=== PATIENT | female | born 1985 | race Caucasian/White ===

== ENCOUNTER 2016-10-25 20:03 | Emergency (ER) | payer MEDICAID ==
[2016-10-25] MEDS ORDERED: HYDROmorphONE/DILAUDID 1 MG/ML SYR IVP ONE ×2 (20:29→22:00)
[2016-10-25] MEDS ORDERED: NS 1,000 ML IV ONE (20:29)
[2016-10-25] MEDS ORDERED: ONDANSETRON 4 MG/2 ML VIAL IVP ONE (20:29)
[2016-10-25 20:50] VITALS: RESP 16
[2016-10-25 20:51] VITALS: TEMP 97.7
[2016-10-25 20:59] LABS: % IMMATURE GRANULYOCYTES 0.3 % (0.0-1.1); ABSOLUTE IMMATURE GRANULOCYTES 0.02 10^3/uL (0.00-0.10); ADD DIFF? NO; ADD MORPH? NO; ADD SCAN? NO; ATYPICAL LYMPHOCYTE FLAG 10 (0-99); COLOR YELLOW; FRAGMENT RBC FLAG 0 (0-99); HEMATOCRIT 45.1 % (38.0-47.0); HEMOGLOBIN 15.7 g/dL (12.6-16.3); LEFT SHIFT FLG 0 (0-99); LEUKOCYTE ESTERASE,URINE NEGATIVE (NEGATIVE); LIPEMIA HEMOLYSIS FLAG 90 (0-99); MEAN CELL HEMOGLOBIN CONCENTR. 34.8 g/dL (32.4-36.7); MEAN PLATELET VOLUME 8.7 fL (8.7-11.7); NITRITE,URINE NEGATIVE (NEGATIVE); PLATELET CLUMPS FLAG 20 (0-99); PLATELET COUNT 271 10^3/uL (150-400); RED BLOOD CELL COUNT 5.07 10^6/uL (4.18-5.33); RED CELL DISTRIBUTION WIDTH 12.8 % (11.5-15.2)
[2016-10-25 21:06] LABS: ALANINE AMINOTRANSFERASE 34 IU/L (9-52); ALBUMIN 4.4 g/dL (3.5-5.0); ALKALINE PHOSPHATASE 70 IU/L (38-126); ANION GAP 10 mEq/L (8-16); ASPARTATE AMINOTRANSFERASE 27 IU/L (14-46); BILIRUBIN,TOTAL 0.7 mg/dL (0.1-1.4); BILIRUBIN-CONJUGATED 0.4 mg/dL (0.0-0.5); BILIRUBIN-UNCONJUGATED 0.3 mg/dL (0.0-1.1); CALCIUM 9.5 mg/dL (8.5-10.4); CARBON DIOXIDE 24 mEq/l (22-31); CHLORIDE 103 mEq/L (97-110); CREATININE 0.7 mg/dL (0.6-1.0); GLOMERULAR FILTRATION RATE > 60; GLUCOSE 91 mg/dL (70-100); SODIUM 137 mEq/L (134-144); TOTAL PROTEIN 7.1 g/dL (6.3-8.2)
[2016-10-25 22:08] VITALS: BP 127/85
[2016-10-25] MEDS ORDERED: IOPAMIDOL (ISOVUE-300) 100 ML BTL IV ONE (22:09)
--- NOTE | 2016-10-25 23:11 | EDPHY ---
H & P Stated Complaint: ABD PAIN FOR PAST 2 WEEKS. NAUSE AND VOMITING OFF AND ON WITH PAIN - Personal History LMP (Females 10-55): 8-14 Days Ago Current Tetanus/Diphtheria Vaccine: Yes Current Tetanus Diphtheria and Acellular Pertussis (TDAP): Yes - Medical/Surgical History Hx Asthma: No Hx Chronic Respiratory Disease: No Hx Diabetes: No Hx Cardiac Disease: No Hx Renal Disease: No Hx Cirrhosis: No Hx Alcoholism: No Hx HIV/AIDS: No Hx Splenectomy or Spleen Trauma: No Other PMH: medical Back problems, fibromyalgia, depression. surgery none - Social History Smoking Status: Current every day smoker Time Seen by Provider: 10/25/16 20:19 HPI/ROS: Chief complaint: Abdominal pain History of present illness: This is a 30-year-old female who presents to the emergency department for evaluation of abdominal pain. Patient reports the onset of symptoms over the last 2 weeks. She reports the symptoms are intermittent. She describes a cramping pain. She has had associated nausea as well as vomiting. She denies specific precipitating factors. She denies alleviating factors. She denies other associated signs or symptoms including no fevers, no diarrhea or constipation, no urinary symptoms, no abnormal vaginal discomfort or discharge. No sick contacts. Review of systems: A 10 point review of systems was obtained and other than described above was negative (Phong Waller) - Physical Exam Exam: General Appearance: Alert, nontoxic. Eyes: Pupils equal and round no pallor or injection. ENT, Mouth: Mucous membranes moist. Respiratory: There are no retractions, lungs are clear to auscultation. Cardiovascular: Regular rate and rhythm. Gastrointestinal: Bowel sounds are normal. Abdomen is soft and nondistended. Mild tenderness in the lower quadrants bilaterally. No peritoneal signs. Neurological: Alert and oriented. Strength and sensation intact and symmetrical. Skin: Warm and dry, no rashes. Musculoskeletal: Neck is supple non tender. Extremities are symmetrical, full range of motion. Psychiatric: Patient is oriented X 3, there is no agitation. (Phong Waller) Constitutional: Initial Vital Signs Temperature (C) 36.7 C 10/25/16 20:10 Heart Rate 105 H 10/25/16 20:10 Respiratory Rate 18 10/25/16 20:10 Blood Pressure 143/98 H 10/25/16 20:10 O2 Sat (%) 94 10/25/16 20:10 O2 Delivery Mode Room Air Allergies/Adverse Reactions: No Known Allergies Allergy (Verified 10/25/16 20:22) Home Medications: Medication Instructions Recorded Sertraline HCl 07/05/16 Medical Decision Making - Diagnostics Imaging: Pelvic ultrasound unremarkable CT scan of the abdomen and pelvis with IV contrast unremarkable (Phong Waller) ED Course/Re-evaluation: Patient is seen under the supervision of my secondary supervising physician Dr. Nancy Alvarez. Patient presents to the emergency department for evaluation of 2 week history of abdominal pain with nausea and vomiting. Presentation she is nontoxic. She is afebrile and vital signs are stable. Serial abdominal exams were performed in the emergency room both on arrival during her stay and just prior to discharge. Her abdomen remained benign. Blood studies, urinalysis, pelvic ultrasound unremarkable. Discussed with patient that I had not found significant findings on initial evaluation she did want to pursue a CT scan after discussing the risks and benefits. This was pursued and unremarkable. Patient is symptomatically treated and felt well. She was comfortable being discharged home. Home care is discussed. She is asked to follow up with primary care doctor and Gastroenterology for continued evaluation and care. Strict return precautions were given. Patient voiced understanding and agreement with plan. (Phong Waller) Differential Diagnosis: Included but not limited to gastritis, gastroenteritis, biliary tract disease, pancreatitis, colitis, appendicitis, an associated complications, ovarian cyst, urinary tract disease (Phong Waller) Other Provider: The patient was evaluated and managed by the physician assistant professor. I have reviewed this chart and I agree with the findings and plan of care as documented , as indicated by my signature. I am the secondary supervising physician. ( Nancy Alvarez) - Data Points Laboratory Results: Laboratory Results 10/25/16 20:45 10/25/16 20:45 10/25/16 10/25/16 10/25/16 20:45 20:45 20:45 WBC RBC Hgb Hct MCV MCH MCHC RDW Plt Count MPV Neut % (Auto) Lymph % (Auto) [place] % (Auto) Eos % (Auto) Baso % (Auto) Nucleat RBC Rel Count Absolute Neuts (auto) Absolute Lymphs (auto) Absolute Monos (auto) Absolute Eos (auto) Absolute Basos (auto) Absolute Nucleated RBC Immature Gran % Immature Gran # Sodium 137 mEq/L mEq/L (134-144) Potassium 4.0 mEq/L mEq/L (3.5-5.2) Chloride 103 mEq/L mEq/L (97-110) Carbon Dioxide 24 mEq/l mEq/l (22-31) Anion Gap 10 mEq/L mEq/L (8-16) BUN 8 mg/dL mg/dL (7-23) Creatinine 0.7 mg/dL mg/dL (0.6-1.0) Estimated GFR > 60 Glucose 91 mg/dL mg/dL (70-100) Calcium 9.5 mg/dL mg/dL (8.5-10.4) Total Bilirubin 0.7 mg/dL mg/dL (0.1-1.4) Conjugated Bilirubin 0.4 mg/dL mg/dL (0.0-0.5) Unconjugated Bilirubin 0.3 mg/dL mg/dL (0.0-1.1) AST 27 IU/L IU/L (14-46) ALT 34 IU/L IU/L (9-52) Alkaline Phosphatase 70 IU/L IU/L (38-126) Total Protein 7.1 g/dL g/dL (6.3-8.2) Albumin 4.4 g/dL g/dL (3.5-5.0) Lipase 25.0 IU/L IU/L (23-300) Beta HCG, Qual NEGATIVE Urine Color YELLOW Urine Appearance CLEAR Urine pH 5.0 (5.0-7.5) Ur Specific [place] 1.009 (1.002-1.030) Urine Protein NEGATIVE (NEGATIVE) Urine Ketones NEGATIVE (NEGATIVE) Urine Blood 2+ H (NEGATIVE) Urine Nitrate NEGATIVE (NEGATIVE) Urine Bilirubin NEGATIVE (NEGATIVE) Urine Urobilinogen NEGATIVE EU EU (0.2-1.0) Ur Leukocyte Esterase NEGATIVE (NEGATIVE) Urine RBC 1-3 /hpf /hpf (0-3) Urine WBC 1-3 /hpf /hpf (0-3) Ur Epithelial Cells TRACE /lpf /lpf (NONE-1+) Ur Culture Indicated? NOT INDICATED (NI) Urine Glucose NEGATIVE (NEGATIVE) 10/25/16 20:45 WBC 7.20 10^3/uL 10^3/uL (3.80-9.50) RBC 5.07 10^6/uL 10^6/uL (4.18-5.33) Hgb 15.7 g/dL g/dL (12.6-16.3) Hct 45.1 % % (38.0-47.0) MCV 89.0 fL fL (81.5-99.8) MCH 31.0 pg pg (27.9-34.1) MCHC 34.8 g/dL g/dL (32.4-36.7) RDW 12.8 % % (11.5-15.2) Plt Count 271 10^3/uL 10^3/uL (150-400) MPV 8.7 fL fL (8.7-11.7) Neut % (Auto) 57.2 % % (39.3-74.2) Lymph % (Auto) 34.4 % % (15.0-45.0) [place] % (Auto) 6.8 % % (4.5-13.0) Eos % (Auto) 0.7 % % (0.6-7.6) Baso % (Auto) 0.6 % % (0.3-1.7) Nucleat RBC Rel Count 0.0 % % (0.0-0.2) Absolute Neuts (auto) 4.12 10^3/uL 10^3/uL (1.70-6.50) Absolute Lymphs (auto) 2.48 10^3/uL 10^3/uL (1.00-3.00) Absolute Monos (auto) 0.49 10^3/uL 10^3/uL (0.30-0.80) Absolute Eos (auto) 0.05 10^3/uL 10^3/uL (0.03-0.40) Absolute Basos (auto) 0.04 10^3/uL 10^3/uL (0.02-0.10) Absolute Nucleated RBC 0.00 10^3/uL 10^3/uL (0-0.01) Immature Gran % 0.3 % % (0.0-1.1) Immature Gran # 0.02 10^3/uL 10^3/uL (0.00-0.10) Sodium Potassium Chloride Carbon Dioxide Anion Gap BUN Creatinine Estimated GFR Glucose Calcium Total Bilirubin Conjugated Bilirubin Unconjugated Bilirubin AST ALT Alkaline Phosphatase Total Protein Albumin Lipase Beta HCG, Qual Urine Color Urine Appearance Urine pH Ur Specific [place] Urine Protein Urine Ketones Urine Blood Urine Nitrate Urine Bilirubin Urine Urobilinogen Ur Leukocyte Esterase Urine RBC Urine WBC Ur Epithelial Cells Ur Culture Indicated? Urine Glucose Medications Given: Discontinued Medications Hydrocodone Bitart/Acetaminophen (Topton 5/325mg Prepack#6) 1 btl TAKEHOME EDNOW ONE Stop: 10/25/16 23:38 Last Admin: 10/25/16 23:43 Dose: 1 btl Hydromorphone HCl (Dilaudid) 1 mg IVP EDNOW ONE Stop: 10/25/16 20:30 Last Admin: 10/25/16 20:48 Dose: 1 mg Hydromorphone HCl (Dilaudid) 1 mg IVP EDNOW ONE Stop: 10/25/16 22:01 Last Admin: 10/25/16 22:06 Dose: 1 mg Sodium Chloride (Ns) 1,000 mls @ 0 mls/hr IV ONCE ONE PRN Reason: Wide Open Stop: 10/25/16 20:30 Last Admin: 10/25/16 20:39 Dose: 1,000 mls Ondansetron HCl (Zofran) 4 mg IVP EDNOW ONE Stop: 10/25/16 20:30 Last Admin: 10/25/16 20:48 Dose: 4 mg Ondansetron HCl (Zofran Odt 4 Mg Prepack#2) 1 btl TAKEHOME EDNOW ONE Stop: 10/25/16 23:38 Last Admin: 10/25/16 23:43 Dose: 1 btl Departure - Departure Disposition: Home, Routine, Self-Care Clinical Impression: Abdominal pain Qualifiers: Abdominal location: generalized Qualified Code(s): R10.84 - Generalized abdominal pain Condition: Good Instructions: Hydrocodone/Acetaminophen (By mouth), Ondansetron (By mouth), Abdominal Pain (ED) Additional Instructions: Follow-up with your primary care doctor or a envelope folding machine operator for continued evaluation and care You have been prescribed [Topton] for pain. [Topton] contains Tylenol, do not take extra Tylenol/acetaminophen/Apap with it. It is sedating. If symptoms worsen or new symptoms develop return to the emergency department for recheck Referrals: Dequan Rivas MD [Primary Care Provider] - As per Instructions Zay Malik MD, FACG [Medical Doctor] - As per Instructions
[2016-10-25] MEDS ORDERED: HYDROCOD/APAP 5/325 PREPACK#6 BTL TAKEHOME ONE (23:37)
[2016-10-25] MEDS ORDERED: ONDANSETRON 4MG PREPACK#2 BTL TAKEHOME ONE (23:37)
[2016-10-25 23:46] VITALS: PULSE 82; O2SAT 94
== END 2016-10-25 23:45 | disposition home or self-care (01) ==
DX: R10.84 Generalized abdominal pain (principal); F17.200 Nicotine dependence, unspecified, uncomplicated
CPT/HCPCS: 96374; J1170; J2405; Q9967

== ENCOUNTER 2016-10-27 11:43 | Emergency (ER) | payer MEDICAID ==
[2016-10-27] MEDS ORDERED: NS 1,000 ML IV ONE (13:48)
[2016-10-27] MEDS ORDERED: MAALOX/LIDO/HYOSC GI COCKTAIL 55 ML BOTTLE PO ONE (13:48)
[2016-10-27] MEDS ORDERED: KETOROLAC 30 MG/1 ML SDV IVP ONE (13:48)
[2016-10-27] MEDS ORDERED: ONDANSETRON 4 MG/2 ML VIAL IVP ONE (13:48)
--- NOTE | 2016-10-27 13:50 | EDPHY ---
H & P Stated Complaint: Abdo pain- seen 3/, now worse epigastric area. Time Seen by Provider: 10/27/16 13:21 HPI/ROS: CHIEF COMPLAINT: Right upper quadrant abdominal pain HISTORY OF PRESENT ILLNESS: 30-year-old female seen emergency department 2 days ago at which time she is complaining of lower abdominal pain, had pelvic ultrasonography, CT scanning of the abdomen all which was negative. Returns to the ER complaining of new right upper quadrant and epigastric discomfort since last evening, was awake all last night complaining of pain with associated vomiting and nausea. No radiation of pain. Atraumatic. No dyspnea. No recent URI symptoms. No cough. No back or flank pain. No urinary abnormality. She has previously been given GI referral information and is planning on arranging a GI appointment REVIEW OF SYSTEMS: A ten point review of systems was performed and is negative with the exception of the items mentioned in the HPI PAST MEDICAL & SURGICAL HISTORY: No pertinent medical or surgical history SOCIAL HISTORY: Nonsmoker PHYSICAL EXAM (Prior to examination, patient consented to physical exam, hands were washed and my usual and customary physical exam procedures followed) 1) GENERAL: Well-developed, well-nourished, alert and oriented. Appears uncomfortable . 2) HEAD: Normocephalic, atraumatic 3) HEENT: Pupils equal, round, reactive to light bilaterally. Sclera anicteric. Nasopharynx, oropharynx, clear, no lesions. 4) NECK: Full range of motion, no meningeal signs. 5) LUNGS: Clear auscultation bilaterally, no wheezes, no rhonchi, no retractions. 6) HEART: Regular rate and rhythm, no murmur, no heave, no gallop. 7) ABDOMEN: No guarding, tender to palpation right upper quadrant and epigastrium, negative McBurney's, negative Rovsing's, negative peritoneal sign, 8) MUSCULOSKELETAL: Moving all extremities, no focal areas of tenderness, no obvious trauma. No peripheral edema or discoloration. 9) BACK: No CVA tenderness, no midline vertebral tenderness, no fluctuance, no step-off, no obvious trauma, no visual or palpable abnormality. 10) SKIN: No rash, no petechiae. 11) Psychiatric: Patient is oriented X 3, there is no agitation. DIFFERENTIAL DIAGNOSIS: [In no particular order, including but not limited to biliary colic, cholecystitis, peptic ulcer disease, pancreatitis, and gastroenteritis. This is a partial list of diagnoses considered. These considerations are based on history, physical exam, past history and reassessment. - Personal History Current Tetanus/Diphtheria Vaccine: Unsure Current Tetanus Diphtheria and Acellular Pertussis (TDAP): Unsure - Medical/Surgical History Hx Asthma: No Hx Chronic Respiratory Disease: No Hx Diabetes: No Hx Cardiac Disease: No Hx Renal Disease: No Hx Cirrhosis: No Hx Alcoholism: No Hx HIV/AIDS: No Hx Splenectomy or Spleen Trauma: No Other PMH: sciatica, scoliosis, fibromyalgia, depression - Social History Smoking Status: Heavy smoker Constitutional: Initial Vital Signs Temperature (C) 36.9 C 10/27/16 12:41 Heart Rate 100 10/27/16 12:41 Respiratory Rate 16 10/27/16 12:41 Blood Pressure 119/85 H 10/27/16 12:41 O2 Sat (%) 93 10/27/16 12:41 O2 Delivery Mode Room Air Allergies/Adverse Reactions: marijuana Allergy (Intermediate, Verified 10/27/16 12:45) Vomiting Home Medications: Medication Instructions Recorded Sertraline HCl 07/05/16 Amitriptyline HCl 10/27/16 Flonase Nasal [place] 10/27/16 Pantoprazole Sodium [Protonix 40mg 40 mg PO DAILY #30 tab 10/27/16 (RX)] Ranitidine HCl 10/27/16 Tizanidine HCl 10/27/16 Medical Decision Making - Diagnostics Imaging: Sonography Limited to the Right Upper Quadrant of the Abdomen CLINICAL HISTORY: 30-year-old female presenting to the ED complaining of right upper quadrant pain since last night. Rule out cholelithiasis. TECHNIQUE: A curvilinear 5 MHz transducer was used to sonographically evaluate the right upper quadrant of the abdomen. Color Doppler was used. COMPARISON STUDY: CT scan of the abdomen, dated 10/25/2016. FINDINGS: The pancreatic contour is normal. The abdominal aorta is normal in size, and tapers normally. The visualized IVC is normal in caliber. The hepatic vein trifurcation is normal. The main portal vein is patent. The liver is normal in size, measuring 16.3 cm along the right midaxillary line. There is no intra or extrahepatic bile duct dilatation. The common bile duct measures 4.7 mm. The gallbladder is moderately distended, and there is no evidence of cholelithiasis, pericholecystic fluid, or sonographic Goodrich sign. There are some adherent nonmobile echogenic polyps in the 2 to 3 mm range (versus small "sludge balls") . The lack of mobility with no acoustic shadowing would militate against cholelithiasis. The right kidney is normal in size, shape, and contour, with a normal renal cortical thickness, and no focal renal mass or hydronephrosis, and measures 10.2 x 5.0 x 4.9 cm, and the right renal cortex measures 1.3 cm.. There is no ascites or right pleural effusion. IMPRESSION: There are small gallbladder polyps (versus adherent sludge balls) in the 2 to 3 mm range , with no convincing evidence of cholelithiasis, cholecystitis, or bile duct dilatation. Findings and recommendations were discussed with Maria Luisa Blake PA-C, at 15: 12, on 10/27/2016. Dictated By: Lalo Salinas MD Images reviewed by myself ED Course/Re-evaluation: 1:45 p.m.: Old medical records and imaging studies reviewed by myself.. Discussed case with Dr Parker Eastman in the ER. 4:00 p.m.: Re-evaluation, she is currently asymptomatic. She is texting on her cell phone, appears comfortable. The ER senior case manager has arranged for an appointment tomorrow with [facility] the [facility] that his [place] office at 1:45 p.m.. Stressed repeatedly to the patient that she needs to keep this appointment. Started on proton pump inhibitor. Doubt acute surgical abdominal pathology. - Data Points Laboratory Results: Laboratory Results 10/27/16 13:37 10/27/16 13:37 10/27/16 10/27/16 13:37 13:37 WBC 5.62 10^3/uL 10^3/uL (3.80-9.50) RBC 4.91 10^6/uL 10^6/uL (4.18-5.33) Hgb 15.5 g/dL g/dL (12.6-16.3) Hct 45.0 % % (38.0-47.0) MCV 91.6 fL fL (81.5-99.8) MCH 31.6 pg pg (27.9-34.1) MCHC 34.4 g/dL g/dL (32.4-36.7) RDW 13.0 % % (11.5-15.2) Plt Count 246 10^3/uL 10^3/uL (150-400) MPV 9.0 fL fL (8.7-11.7) Neut % (Auto) 62.6 % % (39.3-74.2) Lymph % (Auto) 27.9 % % (15.0-45.0) [place] % (Auto) 6.8 % % (4.5-13.0) Eos % (Auto) 1.4 % % (0.6-7.6) Baso % (Auto) 1.1 % % (0.3-1.7) Nucleat RBC Rel Count 0.0 % % (0.0-0.2) Absolute Neuts (auto) 3.52 10^3/uL 10^3/uL (1.70-6.50) Absolute Lymphs (auto) 1.57 10^3/uL 10^3/uL (1.00-3.00) Absolute Monos (auto) 0.38 10^3/uL 10^3/uL (0.30-0.80) Absolute Eos (auto) 0.08 10^3/uL 10^3/uL (0.03-0.40) Absolute Basos (auto) 0.06 10^3/uL 10^3/uL (0.02-0.10) Absolute Nucleated RBC 0.00 10^3/uL 10^3/uL (0-0.01) Immature Gran % 0.2 % % (0.0-1.1) Immature Gran # 0.01 10^3/uL 10^3/uL (0.00-0.10) Sodium 141 mEq/L mEq/L (134-144) Potassium 4.3 mEq/L mEq/L (3.5-5.2) Chloride 108 mEq/L mEq/L (97-110) Carbon Dioxide 23 mEq/l mEq/l (22-31) Anion Gap 10 mEq/L mEq/L (8-16) BUN 6 mg/dL L mg/dL (7-23) Creatinine 0.7 mg/dL mg/dL (0.6-1.0) Estimated GFR > 60 Glucose 93 mg/dL mg/dL (70-100) Calcium 9.3 mg/dL mg/dL (8.5-10.4) Total Bilirubin 0.7 mg/dL mg/dL (0.1-1.4) Conjugated Bilirubin 0.4 mg/dL mg/dL (0.0-0.5) Unconjugated Bilirubin 0.3 mg/dL mg/dL (0.0-1.1) AST 24 IU/L IU/L (14-46) ALT 35 IU/L IU/L (9-52) Alkaline Phosphatase 76 IU/L IU/L (38-126) Total Protein 6.8 g/dL g/dL (6.3-8.2) Albumin 4.4 g/dL g/dL (3.5-5.0) Lipase 33.0 IU/L IU/L (23-300) Medications Given: Discontinued Medications Hydromorphone HCl (Dilaudid) 1 mg IVP EDNOW ONE Stop: 10/27/16 14:23 Last Admin: 10/27/16 14:40 Dose: 1 mg Hydromorphone HCl (Dilaudid) 1 mg IVP EDNOW ONE Stop: 10/27/16 15:36 Last Admin: 10/27/16 15:45 Dose: 1 mg Sodium Chloride (Ns) 1,000 mls @ 0 mls/hr IV ONCE ONE PRN Reason: Wide Open Stop: 10/27/16 13:49 Last Admin: 10/27/16 13:50 Dose: 1,000 mls Ketorolac Tromethamine (Toradol) 30 mg IVP EDNOW ONE Stop: 10/27/16 13:49 Last Admin: 10/27/16 13:55 Dose: 30 mg Miscellaneous Medication (Gi Cocktail) 45 ml PO EDNOW ONE Stop: 10/27/16 13:49 Last Admin: 10/27/16 13:55 Dose: 45 ml Ondansetron HCl (Zofran) 4 mg IVP EDNOW ONE Stop: 10/27/16 13:49 Last Admin: 10/27/16 13:55 Dose: 4 mg Departure - Departure Disposition: Home, Routine, Self-Care Clinical Impression: Abdominal pain Qualifiers: Abdominal location: right upper quadrant Qualified Code(s): R10.11 - Right upper quadrant pain Nausea & vomiting Qualifiers: Vomiting type: unspecified Vomiting Intractability: non-intractable Qualified Code(s): R11.2 - Nausea with vomiting, unspecified Condition: Good Instructions: Acute Nausea and Vomiting (ED), Abdominal Pain (ED) Additional Instructions: Darin We have made you an appoinment at [facility] in [place] for October 28 at 145PM. The address is [facility] [address]. They are located at the corner [address] It is extremely DIFFICULT to get an appointment with their clinic so we do ask that you please make every effort to be there on time so they can continue to evaluate your ongoing abdominal pain. Seek immediate medical attention if you develop new or worsening symptoms, if you develop fevers, chills, inability to tolerate oral intake or any other symptoms that concerns you. Referrals: Jorg eA Reeder MD [Medical Doctor] - 10/28/16 1:45 pm (You have an appointment with Dr Reeder at [facility] IN [place] office tomorrow.) Prescriptions: Pantoprazole Sodium [Protonix 40mg (RX)] 40 mg PO DAILY #30 tab
[2016-10-27 13:54] LABS: % IMMATURE GRANULYOCYTES 0.2 % (0.0-1.1); ABSOLUTE IMMATURE GRANULOCYTES 0.01 10^3/uL (0.00-0.10); ADD DIFF? NO; ADD MORPH? NO; ADD SCAN? NO; ATYPICAL LYMPHOCYTE FLAG 20 (0-99); FRAGMENT RBC FLAG 0 (0-99); HEMOGLOBIN 15.5 g/dL (12.6-16.3); LEFT SHIFT FLG 0 (0-99); LIPEMIA HEMOLYSIS FLAG 90 (0-99); MEAN CELL HEMOGLOBIN 31.6 pg (27.9-34.1); MEAN CELL HEMOGLOBIN CONCENTR. 34.4 g/dL (32.4-36.7); MEAN CELL VOLUME 91.6 fL (81.5-99.8); PLATELET CLUMPS FLAG 0 (0-99); PLATELET COUNT 246 10^3/uL (150-400); RED BLOOD CELL COUNT 4.91 10^6/uL (4.18-5.33)
[2016-10-27 14:06] LABS: ALANINE AMINOTRANSFERASE 35 IU/L (9-52); ALBUMIN 4.4 g/dL (3.5-5.0); ALKALINE PHOSPHATASE 76 IU/L (38-126); ANION GAP 10 mEq/L (8-16); ASPARTATE AMINOTRANSFERASE 24 IU/L (14-46); BILIRUBIN,TOTAL 0.7 mg/dL (0.1-1.4); BILIRUBIN-CONJUGATED 0.4 mg/dL (0.0-0.5); BILIRUBIN-UNCONJUGATED 0.3 mg/dL (0.0-1.1); CALCIUM 9.3 mg/dL (8.5-10.4); CARBON DIOXIDE 23 mEq/l (22-31); CHLORIDE 108 mEq/L (97-110); CREATININE 0.7 mg/dL (0.6-1.0); GLOMERULAR FILTRATION RATE > 60; GLUCOSE 93 mg/dL (70-100); POTASSIUM 4.3 mEq/L (3.5-5.2); SODIUM 141 mEq/L (134-144); TOTAL PROTEIN 6.8 g/dL (6.3-8.2)
[2016-10-27] MEDS ORDERED: HYDROmorphONE/DILAUDID 1 MG/ML SYR IVP ONE ×2 (14:22→15:35)
[2016-10-27 16:21] VITALS: BP 128/79; PULSE 89; RESP 17; TEMP 98.4; O2SAT 98
== END 2016-10-27 16:20 | disposition home or self-care (01) ==
DX: R10.11 Right upper quadrant pain (principal); R11.2 Nausea with vomiting, unspecified; F17.200 Nicotine dependence, unspecified, uncomplicated
CPT/HCPCS: 96374; J1170; J1885; J2405

== ENCOUNTER 2017-01-01 18:46 | Emergency (ER) | payer MEDICAID ==
[2017-01-01 19:08] VITALS: BP 111/84; PULSE 109; RESP 20; TEMP 98.2; O2SAT 98
[2017-01-01 19:54] LABS: COLOR YELLOW; LEUKOCYTE ESTERASE,URINE 3+ (NEGATIVE); NITRITE,URINE POSITIVE (NEGATIVE)
[2017-01-01 20:06] LABS: BACTERIA 4+ /hpf (NONE SEEN); MUCUS TRACE /lpf (NONE-1+); WBC,URINE 50-182 /hpf (0-3)
--- NOTE | 2017-01-01 20:21 | EDPHY ---
H & P Time Seen by Provider: 01/01/17 20:14 HPI/ROS: Emergency Department course/MDM: I went into the room at 8:15 p.m. to see the patient but she had left. Nurse attempted to contact her by phone. Encouraged her to return Smoking Status: Heavy smoker Constitutional: Initial Vital Signs Temperature (C) 36.8 C 01/01/17 19:05 Heart Rate 109 H 01/01/17 19:05 Respiratory Rate 20 01/01/17 19:05 Blood Pressure 111/84 H 01/01/17 19:05 O2 Sat (%) 98 01/01/17 19:05 O2 Delivery Mode Room Air Allergies/Adverse Reactions: marijuana Allergy (Intermediate, Verified 01/01/17 19:05) Vomiting Home Medications: Medication Instructions Recorded Sertraline HCl 07/05/16 Amitriptyline HCl 10/27/16 Tizanidine HCl 10/27/16 MDM/Departure - Depart Disposition: Left Without Being Seen Referrals: Sherrill Miller DO [Primary Care Provider] - As per Instructions
== END 2017-01-01 20:34 | disposition left against medical advice (07) ==
DX: Z53.21 Procedure and treatment not carried out due to patient leaving prior to being seen by health care provider (principal)

== ENCOUNTER 2017-01-01 22:27 | Emergency (ER) | payer MEDICAID ==
[2017-01-01 22:32] VITALS: RESP 16; TEMP 98.4; O2SAT 94
[2017-01-01] MEDS ORDERED: ONDANSETRON 4 MG/2 ML VIAL IVP ONE (22:51)
[2017-01-01] MEDS ORDERED: NS 1,000 ML IV ONE (22:51)
[2017-01-01 23:07] LABS: % IMMATURE GRANULYOCYTES 0.2 % (0.0-1.1); ABSOLUTE IMMATURE GRANULOCYTES 0.02 10^3/uL (0.00-0.10); ADD DIFF? NO; ADD MORPH? NO; ADD SCAN? NO; ATYPICAL LYMPHOCYTE FLAG 30 (0-99); FRAGMENT RBC FLAG 0 (0-99); HEMOGLOBIN 15.4 g/dL (12.6-16.3); LEFT SHIFT FLG 0 (0-99); LIPEMIA HEMOLYSIS FLAG 90 (0-99); MEAN CELL HEMOGLOBIN 31.4 pg (27.9-34.1); MEAN CELL HEMOGLOBIN CONCENTR. 34.2 g/dL (32.4-36.7); MEAN CELL VOLUME 91.6 fL (81.5-99.8); MEAN PLATELET VOLUME 8.9 fL (8.7-11.7); PLATELET CLUMPS FLAG 0 (0-99); PLATELET COUNT 246 10^3/uL (150-400); RED BLOOD CELL COUNT 4.91 10^6/uL (4.18-5.33); RED CELL DISTRIBUTION WIDTH 12.9 % (11.5-15.2)
--- NOTE | 2017-01-01 23:10 | EDPHY ---
H & P Stated Complaint: abd pain and burning with urination seen earlier today fro same HPI/ROS: CHIEF COMPLAINT: Flank pain, urinary complaints HISTORY OF PRESENT ILLNESS: Patient awoke this morning with left flank plain and burning with urination. This has been persistent throughout the day. Moderate to severe. Worse with every urination. No fever. No chills. No nausea. No vomiting. No generalized abdominal pain. No suprapubic pain. No vaginal bleeding or discharge. No position of comfort. Patient was recently here this evening but chose to leave without treatment complete because she says she needs to be done to her children. No other associated complaints or modifying factors. PREVIOUS ABDOMINAL SURGERIES/DIAGNOSES: None REVIEW OF SYSTEMS: Ten systems reviewed and are negative unless otherwise noted in the HPI EXAMINATION: General Appearance: Alert, no distress, tearful but consolable Head: normocephalic, atraumatic Eyes: Pupils equal and round, no conjunctival pallor or injection ENT, Mouth: Mucous membranes moist. Uvula midline. Neck: Normal inspection, supple, non-tender. Respiratory: Lungs are clear to auscultation.No wheezing, rhonchi or crackles. Cardiovascular: Regular rate and rhythm. No murmur. Gastrointestinal: Abdomen is soft. No abdominal tenderness. Moderate left CVA tenderness. No guarding. No distention. No tympany. No rigidity. Non-acute abdomen. Back: non-tender, no bony abnormalities Neurological: A&O, nonfocal, strength symmetric Skin: Warm and dry, no rash. No petechiae or purpura Extremities: Nontender, no pedal edema Psychiatric: Mood and affect normal DIFFERENTIAL DIAGNOSES: Including but not limited to urinary tract infection, cystitis, pyelonephritis, renal colic, ureterolithiasis, hydronephrosis MDM: 10:54 p.m. Left flank pain with dysuria and frequent urination. Vital signs are all within normal limits. Urinalysis from earlier this evening, the visit in which she left without treatment complete, does reveal evidence of UTI. There is also a negative test from that visit. I have ordered laboratory studies and ultrasound. She is in no acute distress. 11:45 p.m. Laboratory studies reveal minimally elevated white blood cell count. Creatinine is normal. Lipase is normal. Notified by Dr. Kee that the renal ultrasound is within normal limits with no acute findings. I have started her on Keflex and 1 dose of pain medication here. Plan for discharge home on Keflex and follow up with primary care physician for further care. She is to return to the ER for the below complaints. She is comfortable this plan and discharged home stable condition. ED Precautions: Worsening pain. Fever. Bloody stools. Bloody emesis. Constipation or diarrhea. SUPERVISION: This patient was independently evaluated without direct examination by the attending physician. Case was discussed with attending physician. Source: Patient, Family Exam Limitations: No limitations - Personal History LMP (Females 10-55): 15-21 Days Ago Current Tetanus/Diphtheria Vaccine: Unsure Current Tetanus Diphtheria and Acellular Pertussis (TDAP): Unsure - Medical/Surgical History Hx Asthma: No Hx Chronic Respiratory Disease: No Hx Diabetes: No Hx Cardiac Disease: No Hx Renal Disease: No Hx Cirrhosis: No Hx Alcoholism: No Hx HIV/AIDS: No Hx Splenectomy or Spleen Trauma: No Other PMH: sciatica, scoliosis, fibromyalgia, depression - Social History Smoking Status: Heavy smoker Constitutional: Initial Vital Signs Temperature (C) 98.4 F 01/01/17 22:30 Heart Rate 115 H 01/01/17 22:30 Respiratory Rate 16 01/01/17 22:30 Blood Pressure 100/76 01/01/17 22:30 O2 Sat (%) 94 01/01/17 22:30 O2 Delivery Mode Room Air Allergies/Adverse Reactions: marijuana Allergy (Intermediate, Verified 01/01/17 19:05) Vomiting Home Medications: Medication Instructions Recorded Sertraline HCl 07/05/16 Amitriptyline HCl 10/27/16 Tizanidine HCl 10/27/16 Cephalexin [Keflex (*)] 500 mg PO TID #30 cap 01/01/17 Hydrocodone/APAP 5/325 [[place] 1 - 2 tab PO Q4H PRN #10 tab 01/01/17 5/325 (*)] Departure - Departure Disposition: Home, Routine, Self-Care Clinical Impression: Flank pain UTI (urinary tract infection) Qualifiers: Urinary tract infection type: site unspecified Hematuria presence: with hematuria Qualified Code(s): N39.0 - Urinary tract infection, site not specified ; R31.9 - Hematuria, unspecified Condition: Good Instructions: Urinary Tract Infection in Women (ED) Additional Instructions: Medications as prescribed as needed. Follow up with primary care physician for further treatment. Return to the ER for fever, nausea, vomiting or abdominal pain Referrals: Sherrill Miller DO [Primary Care Provider] - As per Instructions Prescriptions: Cephalexin [Keflex (*)] 500 mg PO TID #30 cap Hydrocodone/APAP 5/325 [[place] 5/325 (*)] 1 - 2 tab PO Q4H PRN #10 tab PRN Reason: Pain, Moderate
[2017-01-01 23:20] LABS: ANION GAP 10 mEq/L (8-16); CALCIUM 9.3 mg/dL (8.5-10.4); CARBON DIOXIDE 23 mEq/l (22-31); CHLORIDE 102 mEq/L (97-110); CREATININE 0.7 mg/dL (0.6-1.0); GLOMERULAR FILTRATION RATE > 60; GLUCOSE 93 mg/dL (70-100); POTASSIUM 3.9 mEq/L (3.5-5.2); SODIUM 135 mEq/L (134-144)
[2017-01-01] MEDS ORDERED: KETOROLAC 30 MG/1 ML SDV IVP ONE (23:28)
[2017-01-01] MEDS ORDERED: KETOROLAC 30 MG/1 ML SDV ONE (23:29)
[2017-01-01 23:34] VITALS: BP 124/72; PULSE 90
[2017-01-01] MEDS ORDERED: CEPHALEXIN 500MG PREPACK#4 BTL TAKEHOME ONE (23:44)
[2017-01-01] MEDS ORDERED: HYDROCODONE/APAP 5/325 TAB PO ONE (23:44)
== END 2017-01-02 00:35 | disposition home or self-care (01) ==
DX: N39.0 Urinary tract infection, site not specified (principal); F17.200 Nicotine dependence, unspecified, uncomplicated
CPT/HCPCS: 96374; J1885; J2405

== ENCOUNTER → 2017-04-16 | Outpatient (CLI) | payer MEDICAID ==
[~2017-04-16] MED LIST: BUPIVACAINE 0.25% 30 ML SDV ONE
== END ==
LOC: FIMAGING 13:09
PROVIDERS: ATTEND Nurse Practitioner
DX: N94.9 Unspecified condition associated with female genital organs and menstrual cycle (principal)

== ENCOUNTER 2017-05-24 17:39 | Emergency (ER) | payer MEDICAID ==
[2017-05-24 17:49] VITALS: BP 121/72; PULSE 102; RESP 16; TEMP 98.8; O2SAT 98
--- NOTE | 2017-05-24 18:12 | EDPHY ---
H & P Time Seen by Provider: 05/24/17 17:51 HPI/ROS: CHIEF COMPLAINT: "I think I have thrush " HISTORY OF PRESENT ILLNESS: 31-year-old immunocompetent female, no HIV history, no history of chronic inhaled steroids, complaining of 2 days of sore throat. Concerned may be secondary to thrush. Denies URI symptoms. Denies: Fever, chills, chest pain, dyspnea, coughing, nuchal rigidity, change in voice, nuchal rigidity. REVIEW OF SYSTEMS: A ten point review of systems was performed and is negative with the exception of the items mentioned in the HPI PAST MEDICAL & SURGICAL HISTORY: No pertinent medical or surgical history SOCIAL HISTORY: Positive smoker PHYSICAL EXAM (Prior to examination, patient consented to physical exam, hands were washed and my usual and customary physical exam procedures followed) 1) GENERAL: Well-developed, well-nourished, alert and oriented. Appears to be in no acute distress. 2) HEAD: Normocephalic, atraumatic 3) HEENT: Pupils equal, round, reactive to light bilaterally. Sclera anicteric. Oropharynx: Bilateral tonsils are enlarged with white exudate. There is no clinical evidence of thrush. No trismus no drooling. No hot potato voice. Ears bilaterally with normal tympanic membranes. 4) NECK: Full range of motion, no meningeal signs. No adenopathy 5) LUNGS: Clear auscultation bilaterally, no wheezes, no rhonchi, no retractions. 6) HEART: Regular rate and rhythm, no murmur, no heave, no gallop. 7) ABDOMEN: No guarding, no rebound, no focal tenderness, negative McBurney's, negative Goodrich's, negative Rovsing's, negative peritoneal sign, 8) MUSCULOSKELETAL: No peripheral edema or discoloration. 9) BACK: No CVA tenderness. 10) SKIN: No rash, no petechiae. 11) Psychiatric: Patient is oriented X 3, there is no agitation. DIFFERENTIAL DIAGNOSIS: in no particular include but limited to thrush, peritonsillar abscess, strep pharyngitis, viral pharyngitis, meningitis Smoking Status: Heavy smoker Constitutional: Initial Vital Signs Temperature (C) 37.1 C 10/02/17 17:48 Heart Rate 102 H 05/24/17 17:48 Respiratory Rate 16 05/24/17 17:48 Blood Pressure 121/72 H 05/24/17 17:48 O2 Sat (%) 98 05/24/17 17:48 O2 Delivery Mode Room Air Allergies/Adverse Reactions: No Known Allergies Allergy (Unverified 05/24/17 17:45) Home Medications: Medication Instructions Recorded Sertraline HCl 07/05/16 Amitriptyline HCl 10/27/16 Tizanidine HCl 10/27/16 Hydrocodone/APAP 5/325 [[place] 1 - 2 tab PO Q4H PRN #10 tab 01/01/17 5/325 (*)] Fluconazole [Diflucan (*)] 150 mg PO ONCE #2 tab 01/02/17 Penicillin V Potassium [Pen Vk] 500 mg PO Q6 10 Days tab 05/24/17 MDM/Departure - MDM ED Course/Re-evaluation: The patient was concerned about thrush. I think that this is less than likely. Her symptoms are more than likely secondary to acute strep pharyngitis patient clinical exam findings. I have recommended empiric treatment. She is agreeable with this. Doubt peritonsillar abscess or retropharyngeal abscess or phlegmon. Doubt meningitis. Usual and customary pharyngitis precautions instructions provided.Care of patient under supervision of secondary supervising physician Dr Boateng . - Depart Disposition: Home, Routine, Self-Care Clinical Impression: Acute streptococcal pharyngitis Condition: Good Instructions: Strep Throat (ED) Additional Instructions: Return to the ER immediately if you cannot swallow, have drooling, fevers, neck stiffness, cannot open your jaw, or any other symptoms that concern you. Prescriptions: Penicillin V Potassium [Pen Vk] 500 mg PO Q6 10 Days tab Referrals: JANICE MOREAU [Primary Care Provider] - 2-3 days, call for appt.
== END 2017-05-24 18:18 | disposition home or self-care (01) ==
DX: J02.0 Streptococcal pharyngitis (principal); F17.200 Nicotine dependence, unspecified, uncomplicated

== ENCOUNTER 2017-09-24 18:00 | Emergency (ER) | payer MEDICAID ==
[2017-09-24] MEDS ORDERED: NS 1,000 ML IV ONE (18:11)
[2017-09-24 18:12] VITALS: BP 161/105; PULSE 109; RESP 16; TEMP 98.2; O2SAT 97
[2017-09-24] MEDS ORDERED: cefTRIAXone 1 GM in STERILE WATER INJ 10 ML IV SCH (18:15)
--- NOTE | 2017-09-24 18:15 | EDPHY ---
H & P Stated Complaint: painful urination, pain in both kidneys Time Seen by Provider: 09/24/17 18:07 HPI/ROS: CHIEF COMPLAINT: Bilateral flank pain HISTORY OF PRESENT ILLNESS: The patient is a 31-year-old female who comes to the emergency department complaining of bilateral flank pain. She states that she has had multiple urine and kidney infections in the past and that this feels exactly the same. She has mild dysuria. No fever. She denies risk of . No vaginal bleeding or discharge. She did try taking penicillin for the last 2 days she had left over at home. This did not help however it did give her yeast infection which is also common for her. No abdominal pain. REVIEW OF SYSTEMS: Constitutional: denies: chills, fever, recent illness, recent injury EENTM: denies: blurred vision, double vision, nose congestion Respiratory: denies: cough, shortness of breath Cardiac: denies: chest pain, irregular heart rate, lightheadedness, palpitations Gastrointestinal/Abdominal: denies: abdominal pain, diarrhea, nausea, vomiting, blood streaked stools Genitourinary: See HPI Musculoskeletal: denies: joint pain, muscle pain Skin: denies: lesions, rash, jaundice, bruising Neurological: denies: headache, numbness, paresthesia, tingling, dizziness, weakness Hematologic/Lymphatic: denies: blood clots, easy bleeding, easy bruising Immunologic/allergic: denies: HIV/AIDS, transplant EXAM: GENERAL: Well-appearing, well-nourished and in no acute distress. HEAD: Atraumatic, normocephalic. EYES: Pupils equal round and reactive to light, extraocular movements intact, sclera anicteric, conjunctiva are normal. ENT: TMs normal, nares patent, oropharynx clear without exudates. Moist mucous membranes. NECK: Normal range of motion, supple without lymphadenopathy or JVD. LUNGS: Breath sounds clear to auscultation bilaterally and equal. No wheezes rales or rhonchi. HEART: Regular rate and rhythm without murmurs, rubs or gallops. ABDOMEN: Soft, nontender, normoactive bowel sounds. No guarding, no rebound. No masses appreciated. BACK: No CVA tenderness, no spinal tenderness, step-offs or deformities EXTREMITIES: Normal range of motion, no pitting or edema. No clubbing or cyanosis. NEUROLOGICAL: Cranial nerves II through XII grossly intact. Normal speech, normal gait. 5/5 strength, normal movement in all extremities, normal sensation PSYCH: Normal mood, normal affect. SKIN: Warm, dry, normal turgor, no visible rashes or lesions. Source: Patient Exam Limitations: No limitations - Personal History LMP (Females 10-55): Extended Cycle BCP/Inj Current Tetanus Diphtheria and Acellular Pertussis (TDAP): Yes - Medical/Surgical History Hx Asthma: No Hx Chronic Respiratory Disease: No Hx Diabetes: No Hx Cardiac Disease: No Hx Renal Disease: No Hx Cirrhosis: No Hx Alcoholism: No Hx HIV/AIDS: No Hx Splenectomy or Spleen Trauma: No Other PMH: Frequent urinary tract infections, sciatica, scoliosis, fibromyalgia , depression - Social History Smoking Status: Current every day smoker Alcohol Use: Sober Constitutional: Initial Vital Signs Temperature (C) 36.8 C 09/24/17 18:06 Heart Rate 109 H 09/24/17 18:06 Respiratory Rate 16 09/24/17 18:06 Blood Pressure 161/105 H 09/24/17 18:06 O2 Sat (%) 97 09/24/17 18:06 O2 Delivery Mode Room Air Allergies/Adverse Reactions: latex Allergy (Verified 09/24/17 18:12) Latex, Natural Rubber Allergy (Verified 09/24/17 18:12) Home Medications: Medication Instructions Recorded Sertraline HCl 07/05/16 Amitriptyline HCl 10/27/16 Tizanidine HCl 10/27/16 Cephalexin [Keflex] 500 mg PO TID #21 cap 09/24/17 Fluconazole [Diflucan (*)] 150 mg PO ONCE #1 tab 09/24/17 Ms Contin 09/24/17 oxyCODONE IR 09/24/17 Medical Decision Making ED Course/Re-evaluation: The patient has urinary tract infection and possibly pyelonephritis. She does not appear to be bacteremic. She is afebrile. She has received Rocephin here in the ER and I will discharge her with Keflex. I will also prescribe Diflucan for frequent yeast infections. She is happy with this plan and declines further workup or testing at this time. Differential Diagnosis: Partial list of the Differential diagnosis considered include but were not limited to; urinary tract infection, pyelonephritis, yeast infection and although unlikely based on the history and physical exam, I also considered kidney stone, appendicitis, , ovarian cyst. I discussed these differential diagnoses and the plan with the patient as well as the usual and expected course. The patient understands that the diagnosis is provisional and that in medicine we are not always correct and that further workup is often warranted. Usual and customary warnings were given. All of the patient's questions were answered. The patient was instructed to return to the emergency department should the symptoms at all worsen or return, otherwise to followup with the physician as we discussed. - Data Points Laboratory Results: Laboratory Results 09/24/17 18:25 09/24/17 18:25 09/24/17 09/24/17 09/24/17 18:25 18:25 18:25 WBC RBC Hgb Hct MCV MCH MCHC RDW Plt Count MPV Neut % (Auto) Lymph % (Auto) [place] % (Auto) Eos % (Auto) Baso % (Auto) Nucleat RBC Rel Count Absolute Neuts (auto) Absolute Lymphs (auto) Absolute Monos (auto) Absolute Eos (auto) Absolute Basos (auto) Absolute Nucleated RBC Immature Gran % Immature Gran # Sodium 141 mEq/L mEq/L (135-145) Potassium 4.1 mEq/L mEq/L (3.5-5.2) Chloride 103 mEq/L mEq/L (97-110) Carbon Dioxide 24 mEq/l mEq/l (22-31) Anion Gap 14 mEq/L mEq/L (8-16) BUN 5 mg/dL L mg/dL (7-23) Creatinine 0.7 mg/dL mg/dL (0.6-1.0) Estimated GFR > 60 Glucose 82 mg/dL mg/dL (70-100) Calcium 9.5 mg/dL mg/dL (8.5-10.4) Beta HCG, Qual NEGATIVE Urine Color YELLOW Urine Appearance HAZY Urine pH 6.0 (5.0-7.5) Ur Specific [place] 1.008 (1.002-1.030) Urine Protein NEGATIVE (NEGATIVE) Urine Ketones NEGATIVE (NEGATIVE) Urine Blood 1+ H (NEGATIVE) Urine Nitrate NEGATIVE (NEGATIVE) Urine Bilirubin NEGATIVE (NEGATIVE) Urine Urobilinogen NEGATIVE EU EU (0.2-1.0) Ur Leukocyte Esterase 1+ H (NEGATIVE) Urine RBC 1-3 /hpf /hpf (0-3) Urine WBC 10-15 /hpf H /hpf (0-3) Ur Epithelial Cells TRACE /lpf /lpf (NONE-1+) Urine Bacteria TRACE /hpf H /hpf (NONE SEEN) Urine Mucus TRACE /lpf /lpf (NONE-1+) Urine Glucose NEGATIVE (NEGATIVE) 09/24/17 18:25 WBC 7.00 10^3/uL 10^3/uL (3.80-9.50) RBC 4.95 10^6/uL 10^6/uL (4.18-5.33) Hgb 15.2 g/dL g/dL (12.6-16.3) Hct 42.7 % % (38.0-47.0) MCV 86.3 fL fL (81.5-99.8) MCH 30.7 pg pg (27.9-34.1) MCHC 35.6 g/dL g/dL (32.4-36.7) RDW 13.1 % % (11.5-15.2) Plt Count 287 10^3/uL 10^3/uL (150-400) MPV 8.5 fL L fL (8.7-11.7) Neut % (Auto) 64.7 % % (39.3-74.2) Lymph % (Auto) 26.4 % % (15.0-45.0) [place] % (Auto) 7.1 % % (4.5-13.0) Eos % (Auto) 1.0 % % (0.6-7.6) Baso % (Auto) 0.7 % % (0.3-1.7) Nucleat RBC Rel Count 0.0 % % (0.0-0.2) Absolute Neuts (auto) 4.52 10^3/uL 10^3/uL (1.70-6.50) Absolute Lymphs (auto) 1.85 10^3/uL 10^3/uL (1.00-3.00) Absolute Monos (auto) 0.50 10^3/uL 10^3/uL (0.30-0.80) Absolute Eos (auto) 0.07 10^3/uL 10^3/uL (0.03-0.40) Absolute Basos (auto) 0.05 10^3/uL 10^3/uL (0.02-0.10) Absolute Nucleated RBC 0.00 10^3/uL 10^3/uL (0-0.01) Immature Gran % 0.1 % % (0.0-1.1) Immature Gran # 0.01 10^3/uL 10^3/uL (0.00-0.10) Sodium Potassium Chloride Carbon Dioxide Anion Gap BUN Creatinine Estimated GFR Glucose Calcium Beta HCG, Qual Urine Color Urine Appearance Urine pH Ur Specific [place] Urine Protein Urine Ketones Urine Blood Urine Nitrate Urine Bilirubin Urine Urobilinogen Ur Leukocyte Esterase Urine RBC Urine WBC Ur Epithelial Cells Urine Bacteria Urine Mucus Urine Glucose Medications Given: Discontinued Medications Fluconazole (Diflucan) 150 mg PO EDNOW ONE Stop: 09/24/17 18:53 Last Admin: 09/24/17 18:56 Dose: 150 mg Sodium Chloride (Ns) 1,000 mls @ 0 mls/hr IV ONCE ONE; Wide Open PRN Reason: Protocol Stop: 09/24/17 18:12 Last Admin: 09/24/17 18:24 Dose: 1,000 mls Ceftriaxone Sodium 1 gm/ (Sterile Water) 10 mls @ 150 mls/hr IV DAILY LISA PRN Reason: Protocol Stop: 10/24/17 18:14 Last Admin: 09/24/17 18:43 Dose: Not Given Ceftriaxone Sodium 1 gm/ (Sterile Water) 10 mls @ 150 mls/hr IV EDNOW ONE PRN Reason: Protocol Stop: 09/24/17 18:33 Last Admin: 09/24/17 18:36 Dose: 10 mls Departure - Departure Disposition: Home, Routine, Self-Care Clinical Impression: Urinary tract infection Qualifiers: Urinary tract infection type: site unspecified Hematuria presence: without hematuria Qualified Code(s): N39.0 - Urinary tract infection, site not specified Condition: Fair Instructions: Urinary Tract Infection in Women (ED) Referrals: Sherrill Miller DO [Primary Care Provider] - As per Instructions Nik Boyd MD [Medical Doctor] - As per Instructions Prescriptions: Cephalexin [Keflex] 500 mg PO TID #21 cap Fluconazole [Diflucan (*)] 150 mg PO ONCE #1 tab
[2017-09-24] MEDS ORDERED: cefTRIAXone 1 GM in STERILE WATER INJ 10 ML IV ONE (18:30)
[2017-09-24 18:38] LABS: PLATELET COUNT 287 10^3/uL (150-400)
[2017-09-24] MEDS ORDERED: FLUCONAZOLE 150 MG TAB PO ONE (18:52)
== END 2017-09-24 19:07 | disposition home or self-care (01) ==
DX: N39.0 Urinary tract infection, site not specified (principal); F17.200 Nicotine dependence, unspecified, uncomplicated; E86.9 Volume depletion, unspecified; B96.20 Unspecified Escherichia coli [E. coli] as the cause of diseases classified elsewhere; Z91.040 Latex allergy status
CPT/HCPCS: 96374; J0696

== ENCOUNTER 2017-12-06 17:23 | Emergency (ER) | payer MEDICAID ==
[2017-12-06] MEDS ORDERED: NS 500 ML IV ONE (17:44)
[2017-12-06] MEDS ORDERED: FAMOTIDINE 20 MG/NACL 50 ML IV ONE (18:06)
[2017-12-06] MEDS ORDERED: LIDOCAINE 2% VISCOUS 15 ML UDCUP PO ONE (18:06)
[2017-12-06] MEDS ORDERED: HYOSCYAMINE SULFATE 0.125 MG TAB PO ONE (18:06)
[2017-12-06] MEDS ORDERED: MAG HYDROX/AL HYDROX/SIMETH 30 ML UDCUP PO ONE (18:06)
--- NOTE | 2017-12-06 18:11 | EDPHY ---
H & P Time Seen by Provider: 12/06/17 17:44 HPI/ROS: HPI Chest pain. 31-year-old female by private vehicle with her mother. This patient complains of a burning substernal chest pain onset at 6:30 a.m. This morning. She reports the pain is worse with deep breathing and swallowing. She denies any difficulty swallowing. In denies any sensation of an esophageal food bolus or incomplete swallowing. She does have a history of GERD. She recently ran out of her ranitidine. She reports some underlying shortness of breath. No fever. No cough. ROS: Constitutional: No fever, no chills. No weakness. ENT: No sore throat. No nasal congestion or rhinorrhea. Respiratory: No cough. No shortness of breath. Cardiac: As above, no palpitations. Gastrointestinal: No abdominal pain, no vomiting, no diarrhea. Musculoskeletal: No back pain. No neck pain. No myalgias or arthralgias. Skin: No rashes. Neurological: No headache. No focal weakness or altered sensation. Past medical history: Pectus excavatum which has been attributed to her shortness of breath in the past, frequent urinary tract infections, sciatica, scoliosis, fibromyalgia, depression. Social history: Smoker. Here with her mother. Denies alcohol. Physical Exam: General Appearance: Alert, no distress. This patient is responding to questions appropriately and in full sentences. This patient appears well- hydrated and well-nourished. Eyes: Pupils equal and round no pallor or injection. No lid edema, erythema or injection. ENT, Mouth: Mucous membranes are moist. The pharyngeal tissues are unremarkable. No edema or swelling. No asymmetry suggestive of abscess. No erythema or exudates. Respiratory: There are no retractions, lungs are clear to auscultation with good air movement bilaterally. Cardiovascular: Regular rate and rhythm. No murmur. Gastrointestinal: Abdomen is soft and nontender, no masses, bowel sounds normal. No focal tenderness at McBurney's point. No Goodrich sign. Neurological: Motor sensory function is grossly intact. Cranial nerves are normal. Gait is normal. Skin: Warm and dry, no rashes. Musculoskeletal: Neck is supple and nontender. Extremities are symmetrical. All joints range without pain or impingement. Psychiatric: No agitation. No depression. Database: EKG: EKG time is 6:56 p.m.; EKG shows a narrow complex normal sinus rhythm with a ventricular rate of 80. Left anterior fascicular block noted. The [place], QRS, QT intervals are within normal limits. Borderline T-wave abnormalities in the anterior leads. There are no ST-T wave changes indicative of i acute schemic or injury pattern. No evidence of right heart strain. Interpreted by me. Imaging: Chest x-ray PA and lateral; the cardiac mediastinal silhouette is unremarkable. No evidence of infiltrate or pneumothorax. No acute cardiopulmonary disease process noted. Interpreted by me. Procedures: Emergency department course: IV placed. Vital signs reviewed and are normal. She will given a GI cocktail in 20 mg of IV Pepcid. EKG obtained and reviewed by myself. 7:00 p.m., patient re-evaluated. Resting comfortably at this time. She feels better but is still having some discomfort. Results of her EKG, chest x-ray and diagnostic workup in the emergency department discussed with her and her mother. Her results of been reassuring. Her presentation is consistent with GERD as an etiology of her chest pain. I discussed placing her on Protonix. She endorses this plan. She was given 40 mg in the emergency department. I will prescribe her 2 weeks of this medication. She feels comfortable going home at this time with her mother. I feel she is safe for discharge. Follow- up and return to emergency department precautions reviewed with her. She will follow up with her primary care physician at [facility], Dr. Miller, in 1-2 days for re-evaluation and gastroenterology referral as needed. All of her questions were answered. She was discharged in good condition with her mother. Differential Diagnosis: The differential diagnosis on this patient includes but is not limited to GERD. Myocarditis, acute coronary syndrome, pericarditis, aortic dissection, pulmonary embolism unlikely. This represents a partial list of diagnoses considered. These considerations are based on history, physical exam, past history, reassessment and diagnostic testing. Smoking Status: Current every day smoker Constitutional: Initial Vital Signs Temperature (C) 37.1 C 12/06/17 17:26 Heart Rate 98 12/06/17 17:26 Respiratory Rate 18 12/06/17 17:26 Blood Pressure 124/81 H 12/06/17 17:26 O2 Sat (%) 97 12/06/17 17:26 O2 Delivery Mode Room Air Allergies/Adverse Reactions: latex Allergy (Verified 12/06/17 17:24) Latex, Natural Rubber Allergy (Verified 12/06/17 17:24) Home Medications: Medication Instructions Recorded Sertraline HCl 07/05/16 Amitriptyline HCl 10/27/16 Tizanidine HCl 10/27/16 Ms Contin 09/24/17 oxyCODONE IR 09/24/17 Pantoprazole Sodium [Protonix] 40 mg PO DAILY #14 tab 12/06/17 Medical Decision Making - Diagnostics Imaging Results: Imaging Impressions Chest X-Ray 12/06/17 17:44 Impression: No source for chest pain identified. - Data Points Laboratory Results: Laboratory Results 12/06/17 17:55 12/06/17 12/06/17 12/06/17 17:55 17:55 17:55 D-Dimer < 0.27 ug/mLFEU ug/mLFEU (0.00-0.50) Sodium 139 mEq/L mEq/L (135-145) Potassium 4.0 mEq/L mEq/L (3.5-5.2) Chloride 104 mEq/L mEq/L (97-110) Carbon Dioxide 22 mEq/l mEq/l (22-31) Anion Gap 13 mEq/L mEq/L (8-16) BUN 5 mg/dL L mg/dL (7-23) Creatinine 0.7 mg/dL mg/dL (0.6-1.0) Estimated GFR > 60 Glucose 83 mg/dL mg/dL (70-100) Calcium 9.4 mg/dL mg/dL (8.5-10.4) Troponin I < 0.012 ng/mL ng/mL (0.000-0.034) Beta HCG, Qual NEGATIVE Medications Given: Discontinued Medications Al Hydroxide/Mg Hydroxide (Maalox Susp) 30 ml PO ONCE ONE Stop: 12/06/17 18:07 Last Admin: 12/06/17 18:25 Dose: 30 ml Hyoscyamine Sulfate (Levsin, Hyomax-Sl) 0.25 mg PO ONCE ONE Stop: 12/06/17 18:07 Last Admin: 12/06/17 18:26 Dose: 0.25 mg Sodium Chloride (Ns) 500 mls @ 1,000 mls/hr IV EDNOW ONE PRN Reason: Protocol Stop: 12/06/17 18:13 Last Admin: 12/06/17 18:03 Dose: 500 mls Famotidine/Sodium Chloride (Pepcid 20 Mg (Premix)) 50 mls @ 200 mls/hr IV EDNOW ONE Stop: 12/06/17 18:20 Last Admin: 12/06/17 18:24 Dose: 50 mls Lidocaine (Lidocaine 2% Viscous) 15 ml PO ONCE ONE Stop: 12/06/17 18:07 Last Admin: 12/06/17 18:25 Dose: 15 ml Departure - Departure Disposition: Home, Routine, Self-Care Clinical Impression: Chest pain, GERD (gastroesophageal reflux disease) Condition: Good Instructions: Chest Pain (ED), Gastroesophageal Reflux Disease (ED) Additional Instructions: Read and follow provided instructions. Follow-up with your primary care physician, Dr. Miller, in 1-2 days for re- evaluation. Gastroenterology referral can be arranged through your primary care physician as needed. Take medication as prescribed. Return to the emergency department for worsening symptoms, worsening pain, shortness of breath, lightheadedness or other serious concerns. Referrals: Sherrill Miller DO [Primary Care Provider] - As per Instructions Prescriptions: Pantoprazole Sodium [Protonix] 40 mg PO DAILY #14 tab
--- NOTE | 2017-12-06 18:58 | CPEKG ---
Heart Rate: 80 RR Interval: 750 P-R Interval: 152 QRSD Interval: 88 QT Interval: 396 QTC Interval: 457 P [place]: 37 QRS [place]: -48 T Wave [place]: 14 EKG Severity - ABNORMAL ECG - EKG Impression: SINUS RHYTHM EKG Impression: LEFT ANTERIOR FASCICULAR BLOCK EKG Impression: BORDERLINE T ABNORMALITIES, ANTERIOR LEADS Electronically Signed By: Fransico Doll 06-Dec-2017 22:11:31
[2017-12-06] MEDS ORDERED: PANTOPRAZOLE SODIUM 40 MG TAB PO ONE (19:07)
[2017-12-06 19:21] VITALS: BP 121/86
== END 2017-12-06 19:20 | disposition home or self-care (01) ==
DX: K21.9 Gastro-esophageal reflux disease without esophagitis (principal); E86.9 Volume depletion, unspecified; F17.200 Nicotine dependence, unspecified, uncomplicated; Z91.040 Latex allergy status
CPT/HCPCS: 96365